=== PATIENT | male | born 1960 | race Caucasian/White ===

== ENCOUNTER 2020-09-15 12:22 | Inpatient (IN) | payer OTHER ==
[~2020-09-15] VITALS: Ht 172.7 cm; Wt 81.6 kg
[~2020-09-15 12:22] MED LIST: ZOFRAN4 MG PO
[2020-09-15 12:48] LABS: HEMOGLOBIN 16.2 gm/dl (14.0-17.5); RED BLOOD COUNT 5.32 M/UL (4.20-5.50)
[2020-09-15 13:32] LABS: BUN/CREATININE RATIO 14 (0-10)
[2020-09-15] MEDS ORDERED: PROTONIX 40 MG40 M1 PO (20:36)
[2020-09-16 06:19] LABS: HEMOGLOBIN 14.4 gm/dl (14.0-17.5)
[2020-09-16 06:23] LABS: RED BLOOD COUNT 4.76 M/UL (4.20-5.50)
[2020-09-16 07:20] LABS: BUN/CREATININE RATIO 9 (0-10)
--- NOTE | 2020-09-16 11:09 | NUR ---
PATIENT HAD BP OF 151/107. HAD BEEN GIVEN LYSINOPRIL 20 MINUTES EARLIER. PHYSICIAN IS AWARE. WCTM.
[2020-09-17 04:19] LABS: HEMOGLOBIN 14.2 gm/dl (14.0-17.5); RED BLOOD COUNT 4.72 M/UL (4.20-5.50); WHITE BLOOD COUNT 9.7 K/UL (4.5-11.0)
[2020-09-17 04:48] LABS: BUN/CREATININE RATIO 12 (0-10)
[2020-09-17 12:12] LABS: HBSAG SCREEN Negative (Negative); HEP A AB, IGM Negative (Negative); HEP B CORE AB, IGM Negative (Negative); HEP C VIRUS AB >11.0 (0.0-0.9)
[2020-09-18 05:31] LABS: HEMOGLOBIN 11.9 gm/dl (14.0-17.5); WHITE BLOOD COUNT 6.2 K/UL (4.5-11.0)
[2020-09-18 06:07] LABS: BUN/CREATININE RATIO 12 (0-10)
[2020-09-20 04:23] LABS: HEMOGLOBIN 11.5 gm/dl (14.0-17.5); RED BLOOD COUNT 4.01 M/UL (4.20-5.50); WHITE BLOOD COUNT 7.7 K/UL (4.5-11.0)
[2020-09-20 04:25] LABS: BUN/CREATININE RATIO 11 (0-10)
[2020-09-20] MEDS ORDERED: COLACE100 MG PO (10:00)
[2020-09-20] MEDS ORDERED: HYDROCODON-ACE1 EAC4 PO (10:00)
[2020-09-20] MEDS ORDERED: LISINOPRIL10 MG PO (11:15)
[2020-09-20] MEDS ORDERED: ASPIRIN EC81 MG PO (11:15)
[2020-09-20] MEDS ORDERED: AUGMENTIN 875-1 EACH PO (11:58)
== END 2020-09-20 13:51 | disposition home or self-care (01) | DRG 418 ==
LOC: ER1 12:22 → CDU 17:50 → MED SURG 4 17:50
PROVIDERS: Internal Medicine; Internal Medicine Gastroenterology; Physician Assistant; ADMIT Internal Medicine
PROC: 0F798DZ Dilation of Common Bile Duct with Intraluminal Device, Via Natural or Artificial Opening Endoscopic (ICD-10-PCS; 2020-09-17)
PROC: BF10YZZ Fluoroscopy of Bile Ducts using Other Contrast (ICD-10-PCS; 2020-09-17)
PROC: 0FC98ZZ Extirpation of Matter from Common Bile Duct, Via Natural or Artificial Opening Endoscopic (ICD-10-PCS; 2020-09-17)
PROC: 0FT44ZZ Resection of Gallbladder, Percutaneous Endoscopic Approach (ICD-10-PCS; principal; 2020-09-17 16:30)
DX: K80.43 Calculus of bile duct with acute cholecystitis with obstruction (principal); K22.10 Ulcer of esophagus without bleeding; I25.10 Atherosclerotic heart disease of native coronary artery without angina pectoris; K21.9 Gastro-esophageal reflux disease without esophagitis; G89.29 Other chronic pain; M54.9 Dorsalgia, unspecified; F17.210 Nicotine dependence, cigarettes, uncomplicated; R74.01 Elevation of levels of liver transaminase levels; E80.6 Other disorders of bilirubin metabolism; I16.0 Hypertensive urgency; R07.89 Other chest pain; B19.20 Unspecified viral hepatitis C without hepatic coma; R00.1 Bradycardia, unspecified; I34.0 Nonrheumatic mitral (valve) insufficiency; I07.1 Rheumatic tricuspid insufficiency; I25.2 Old myocardial infarction; Z79.82 Long term (current) use of aspirin; Z98.61 Coronary angioplasty status; Z95.1 Presence of aortocoronary bypass graft; Z91.19 Patient's noncompliance with other medical treatment and regimen
CPT/HCPCS: ECHO; 36415; 71045; 74181; 74330; 80053; 80074; 80076; 81001; 82150; 83690; 85025; 85027; 85610; 93005; 93306; 96374; 96375; 99285; C1769; C2617; C9113; J0690; J1100; J2250; J2270; J2405; J2543; J2704; J3010; J7030; J7040; J7120; Q9962; Q9967; U0002

== ENCOUNTER 2021-03-05 09:46 | Emergency (ER) | payer OTHER ==
[~2021-03-05 09:46] MED LIST changes: +ASPIRIN EC81 MG PO; +AUGMENTIN 875-1 EACH PO; +COLACE100 MG PO; +HYDROCODON-ACE1 EAC4 PO; +LISINOPRIL10 MG PO; +PROTONIX 40 MG40 M1 PO
[2021-03-05] MEDS ORDERED: IBUPROFEN600 MG PO (11:39)
== END 2021-03-05 12:07 | disposition home or self-care (01) ==
LOC: ER1 09:46
DX: M79.661 Pain in right lower leg (principal); M25.551 Pain in right hip; F17.210 Nicotine dependence, cigarettes, uncomplicated
CPT/HCPCS: 73502; 73590; 73610; 96372; 99283; J1885

== ENCOUNTER 2021-06-26 12:33 | Emergency (ER) | payer OTHER ==
[~2021-06-26 12:33] MED LIST changes: +IBUPROFEN600 MG PO
[2021-06-26 13:23] LABS: HEMOGLOBIN 12.7 gm/dl (14.0-17.5); RED BLOOD COUNT 4.36 M/UL (4.20-5.50); WHITE BLOOD COUNT 8.4 K/UL (4.5-11.0)
[2021-06-26 13:44] LABS: BUN/CREATININE RATIO 14 (0-10)
[2021-06-26] MEDS ORDERED: FLOMAX 0.4 MG0.4 MG PO (17:30)
[2021-06-26] MEDS ORDERED: CEPHALEXIN500 MG PO (17:30)
[2021-06-26] MEDS ORDERED: HYDROCODON-ACE1 EAC4 PO (17:30)
[2021-06-26] MEDS ORDERED: ZOFRAN ODT 4 MG4 MG SL (17:30)
== END 2021-06-26 17:40 | disposition home or self-care (01) ==
LOC: ER1 12:33
PROVIDERS: Emergency Medicine
DX: N20.0 Calculus of kidney (principal); R30.0 Dysuria; F17.200 Nicotine dependence, unspecified, uncomplicated
CPT/HCPCS: 80053; 81001; 85025; 87086; 99284; Q9967

== ENCOUNTER 2021-09-07 19:25 | Observation (INO) | payer OTHER ==
[~2021-09-07] VITALS: Ht 172.7 cm; Wt 65.8 kg
[~2021-09-07 19:25] MED LIST changes: +CEPHALEXIN500 MG PO; +FLOMAX 0.4 MG0.4 MG PO; +ZOFRAN ODT 4 MG4 MG SL
[2021-09-07 20:26] LABS: HEMOGLOBIN 10.2 gm/dl (14.0-17.5); RED BLOOD COUNT 3.42 M/UL (4.20-5.50); WHITE BLOOD COUNT 7.5 K/UL (4.5-11.0)
[2021-09-07 20:48] LABS: BUN/CREATININE RATIO 31 (0-10)
--- NOTE | 2021-09-08 00:10 | NUR ---
PT DIDNT BRING MEDICTION BOTTLES TO HOSPITAL. PHARMACY TO COMPLETE HOME MED LIST IN AM.
[2021-09-08] MEDS ORDERED: TYLENOL EXTRA500 MG PO (09:33)
[2021-09-08] MEDS ORDERED: IBU-200200 MG PO (09:34)
[2021-09-08] MEDS ORDERED: LISINOPRIL5 MG PO (15:18)
[2021-09-08] MEDS ORDERED: PROTONIX 40 MG40 M1 PO (15:18)
[2021-09-08] MEDS ORDERED: ATORVASTATIN CA20 MG PO (15:18)
[2021-09-08] MEDS ORDERED: BAYER CHEWABLE81 MG PO (15:19)
== END 2021-09-08 15:56 | disposition home or self-care (01) ==
LOC: ER1 19:25 → MED SURG 4 22:32 → CDU 22:32 → MED SURG 4 23:45
PROVIDERS: Nurse Practitioner; ADMIT Internal Medicine
DX: R07.89 Other chest pain (principal); E87.6 Hypokalemia; K21.9 Gastro-esophageal reflux disease without esophagitis; I10 Essential (primary) hypertension; I25.10 Atherosclerotic heart disease of native coronary artery without angina pectoris; F41.9 Anxiety disorder, unspecified; M51.36 Other intervertebral disc degeneration, lumbar region; F17.210 Nicotine dependence, cigarettes, uncomplicated; E78.5 Hyperlipidemia, unspecified; I25.2 Old myocardial infarction; E46 Unspecified protein-calorie malnutrition; Z68.22 Body mass index [BMI] 22.0-22.9, adult; Z20.822 Contact with and (suspected) exposure to COVID-19; Z95.1 Presence of aortocoronary bypass graft; Z59.00 Homelessness unspecified; Z91.14 Patient's other noncompliance with medication regimen; Z95.5 Presence of coronary angioplasty implant and graft; Z79.82 Long term (current) use of aspirin
CPT/HCPCS: 0240U; 71045; 80053; 82550; 82553; 83735; 84100; 84439; 84443; 84484; 85025; 93005; 99285; G0378